=== PATIENT | male | born 1955 | race Caucasian/White ===

== ENCOUNTER 2017-09-23 11:27 | Day surgery (SDC) | payer BC ==
[2017-09-23] MEDS ORDERED: LIDOCAINE 2% MDV (20MG/ML) 20ML VIAL IV ONE (11:28)
[2017-09-23] MEDS ORDERED: PROPOFOL 10 MG/ML VIAL IV ONE (11:28)
[2017-09-23] MEDS ORDERED: MIDAZOLAM HCL 2MG/2ML VIAL IV ONE (11:28)
--- NOTE | 2017-09-24 13:10 | Operative Note ---
DATE OF SURGERY: 09/23/2017 OPERATION: COLONOSCOPY with cold forceps polypectomy x3. PREOPERATIVE DIAGNOSIS: Personal history of colon polyps. POSTOPERATIVE DIAGNOSIS: Three sigmoid colon polyps, status post cold forceps removal. PROCEDURE: After informed consent was obtained from the patient, he was placed in the left lateral decubitus position in the endoscopy suite, sedated and monitored by the department of anesthesia. Digital rectal exam was unremarkable. A well-lubricated [id number] colonoscope was inserted into the rectum and advanced to the cecum. Preparation quality was good. The cecum, ileocecal valve, appendiceal orifice, ascending colon, transverse colon, and descending colon were free of inflammatory changes, mass lesions, or polyps. In the sigmoid colon, there were 3 diminutive polyps each removed with a cold forceps. Minimal bleeding was noted at the sites. The remainder of the sigmoid colon and rectum were unremarkable. J-turn views of the anorectum were unremarkable. The endoscope was straightened, the rectal ampulla deflated, and the endoscope was removed. RECOMMENDATIONS: I would suggest the patient resume his medications and diet. He will require repeat surveillance exam in 3-5 years pending tissue histology. As always, thank you for allowing me to participate in the healthcare of your patients. CC: Dr. Aidan JARAMILLO
== END 2017-09-23 13:58 | disposition home or self-care (01) ==
LOC: HOP 11:27
PROVIDERS: ATTEND Internal Medicine Gastroenterology
DX: Z12.11 Encounter for screening for malignant neoplasm of colon (principal); Z86.010 Personal history of colon polyps; D12.5 Benign neoplasm of sigmoid colon; I10 Essential (primary) hypertension; E78.00 Pure hypercholesterolemia, unspecified

== ENCOUNTER 2017-11-02 16:21 | Observation (INO) | payer BC ==
[2017-11-02] MEDS ORDERED: SODIUM CHLORIDE 0.9% 500 ML IV ONE (17:15)
[2017-11-02] MEDS ORDERED: ONDANSETRON HCL IV 4 MG/2 ML VIAL IV ONE (17:15)
--- NOTE | 2017-11-02 17:19 | Emergency Department Record ---
History of Present Illness - General Chief Complaint: Abdominal Pain Stated Complaint: PAIN POST LIVER SURGERY Time Seen by Provider: 11/02/17 17:10 Source: Patient Mode of Arrival: Ambulatory Limitations: No limitations - History of Present Illness Initial Comments: The patient is here due to a hx of RUQ AP for about 5 hours today. The patient is 6 days S/P liver biopsy and cauterization at [facility] and had been doing very well until today. At about noon he began to feel weak and have RUQ sharp stabbing pain. He also felt chills, and was sweating and nauseated. Due to the recent surgery he came to the ER here at [facility] for further treatment. He denies any CP, SOB, ROLANDO, back pain, vomiting or diarrhea. MD Complaint: Abdominal pain Onset/Timin -: Days(s) Location: RUQ Radiation: None Severity: Moderate Consistency: Constant Improves With: Nothing Worsens With: Nothing Context: Recent surgery/procedure Associated Symptoms: Chills Treatments Prior to Arrival: Other - Related Data Allergies Allergy/AdvReac Type Severity Reaction Status Date / Time No Known Drug Allergies Allergy Verified 11/02/17 16:50 Travel Screening - Travel/Exposure Within Last 30 Days Have you traveled within the last 30 days?: No Review of Systems Constitutional: Reports: Chills, Fever, Malaise Eyes: Denies: Eye discharge ENT: Denies: Congestion Respiratory: Denies: Cough, Dyspnea Past Medical History - SOCIAL HISTORY Smoking Status: Former smoker Alcohol Use: None Drug Use: None - RESPIRATORY Hx Respiratory Disorders: Yes Hx Sleep Apnea: Yes Hx of CPAP: Yes - CARDIOVASCULAR Hx Cardio Disorders: Yes Hx Cardiac Cath: Yes Hx Hypertension: Yes Hx Coronary Stent: Yes Comment:: AAA, high cholesterol - NEURO Hx Neuro Disorders: No - GI Hx GI Disorders: Yes Hx of Polyps: Yes - Hx Genitourinary Disorders: Yes Hx Kidney Stones: Yes Hx Renal Disease: Yes - ENDOCRINE Hx Endocrine Disorders: No - MUSCULOSKELETAL Hx Musculoskeletal Disorders: Yes Hx Gout: Yes - PSYCH Hx Psych Problems: No - HEMATOLOGY/ONCOLOGY Hx Hematology/Oncology Disorders: Yes Hx Cancer: Yes (Left Kidney) Hx Chemotherapy: No Hx Radiation Therapy: No Family Medical History Any Significant Family History?: Yes Hx Diabetes: Brother/Sister Hx Heart Disease: Mother Physical Exam - General General Appearance: Alert, Oriented x3, Cooperative, No acute distress - Head Head exam: Atraumatic, Normocephalic, Normal inspection - Eye Eye exam: Normal appearance, PERRL - Neck Neck exam: Normal inspection, Full ROM. negative: Tenderness - Respiratory Respiratory exam: Normal lung sounds bilaterally. negative: Respiratory distress - Cardiovascular Cardiovascular Exam: Regular rate, Normal rhythm, Normal heart sounds - GI/Abdominal GI/Abdominal exam: Soft, Normal bowel sounds, Tenderness (There is mild RUQ tenderness to palpation.). negative: Distended, Rebound, Rigid - Extremities Extremities exam: Normal inspection, Full ROM, Normal capillary refill. negative: Tenderness - Neurological Neurological exam: Alert, Normal gait. negative: Abnormal gait, Motor sensory deficit Course Vital Signs 11/02/17 16:50 Temperature 97.7 F Pulse Rate 71 Respiratory 20 Rate Blood Pressure 146/86 Pulse Ox 97 - Reevaluation(s) Reevaluation #1: The patient is doing a lot better at this time. He is resting comfortably and the pain is much improved. I did discuss the lab work and CT results. Due to the fact the pain was quite severe earlier and the Lipase is elevated we will admit OBV. I did discuss the case with Ana ELENA) and she accepts the admission for Dr. Wall. 11/02/17 18:46 Medical Decision Making - Data Complexity MDM Data: Labs Ordered and/or Reviewed, X-Ray Ordered and/or Reviewed - Lab Data Result diagrams: 11/03/17 06:31 11/04/17 06:17 - EKG Data -: EKG Interpreted by Me EKG: No Acute Changes - Radiology Data Radiology results: Report reviewed (CT: No acute changes, liver lobe mass. Neg hematoma or blood.) Disposition Disposition: Admit Clinical Impression: Pancreatitis Qualifiers: Chronicity: acute Pancreatitis type: unspecified pancreatitis type Acute pancreatitis complication: unspecified Qualified Code(s): K85.90 - Acute pancreatitis without necrosis or infection, unspecified Disposition: Still a Patient at [facility] Decision to Admit: Admit from ER Decision to Admit Date: 11/02/17 Decision to Admit Time: 18:48 Accepting Physician: [facility]. Time Discussed w/Accepting Physician: 18:48 Condition: (2) Stable Time of Disposition: 18:48 Quality - Quality Measures Quality Measures: N/A - Blood Pressure Screening View Details: Yes Does Patient Have Any of the Following: No Blood Pressure Classification: Pre-Hypertensive BP Reading Systolic Measurement: 136 Diastolic Measurement: 89 Screening for High Blood Pressure: < Pre-Hypertensive BP, F/U Documented > [ [id number]] Pre-Hypertensive Follow-up Interventions: Referral to alternative/primary care provider.
[2017-11-02 17:32] LABS: HEMATOCRIT 41.1 % (42.0-52.0); HEMOGLOBIN 13.8 gm/dl (14.0-18.0); MEAN CORPUSCULAR HEMOGLOBIN 31.2 pg (27-33); MEAN CORPUSCULAR HGB CONC 33.6 g/dl (32-36); MEAN PLATELET VOLUME 10.1 fl (7.4-10.4); PLATELET COUNT 212 K/uL (130-400); RED BLOOD COUNT 4.42 M/uL (4.40-5.70); RED CELL DISTRIBUTION WIDTH 13.8 % (11.5-14.5); WHITE BLOOD COUNT W/O DIFF 12.7 K/uL (4.2-12.2)
[2017-11-02 17:44] LABS: PLATELET ESTIMATE NORMAL (NORMAL)
[2017-11-02 17:47] LABS: BLOOD UREA NITROGEN 22 mg/dL (8-23); CREATININE 1.1 mg/dL (0.7-1.2); EST GLOMERULAR FILTRATION RATE > 60 mL/min
[2017-11-02 17:48] LABS: TOTAL PROTEIN 7.5 g/dL (6.6-8.7)
[2017-11-02 17:50] LABS: GLUCOSE,RANDOM 134 mg/dL (74-109)
[2017-11-02 17:52] LABS: ALBUMIN 4.6 g/dL (4.0-5.0); ALKALINE PHOSPHATASE 84 U/L (40-129); ALT/SGPT 41 U/L (<41); AST/SGOT 46 U/L (10.0-50.0); BILIRUBIN,DIRECT 0.3 mg/dL (0-0.3)
[2017-11-02 17:53] LABS: C-REACTIVE PROTEIN 0.21 mg/dL (<0.5); LIPASE 112 U/L (13-60)
[2017-11-02 18:21] LABS: URINE APPEARANCE CLEAR; URINE BILIRUBIN NEGATIVE (NEGATIVE); URINE BLOOD NEGATIVE (NEGATIVE); URINE COLOR YELLOW; URINE GLUCOSE (UA) NEGATIVE (NEGATIVE); URINE KETONE NEGATIVE (NEGATIVE); URINE LEUKOCYTE ESTERASE NEGATIVE (NEGATIVE); URINE NITRITE NEGATIVE (NEGATIVE); URINE UROBILINOGEN 0.2 E.U./dL (0.20 - 1.00)
[2017-11-02] MEDS ORDERED: HYDROMORPHONE HCL 1 MG/ML SYRINGE IVP ONE (18:23)
[2017-11-02 19:20] LABS: CKMB 6.6 ng/mL (<6.73)
[2017-11-02 19:23] LABS: CREATINE PHOSPHOKINASE 252 U/L (39-308)
[2017-11-02] MEDS ORDERED: 0.9 % SODIUM CHLORIDE 1000ML 1,000 ML IV PRN (19:44)
[2017-11-02] MEDS ORDERED: ONDANSETRON HCL IV 4 MG/2 ML VIAL IVP PRN (19:44)
[2017-11-02] MEDS ORDERED: HYDROMORPHONE HCL 1 MG/ML SYRINGE IM PRN (19:44)
[2017-11-03 06:50] LABS: BASO % 0.1 % (0-6); EOS % 0.6 % (0-6); GRAN % 80.5 % (47-80); HEMATOCRIT 40.1 % (42.0-52.0); HEMOGLOBIN 13.3 gm/dl (14.0-18.0); LYMPH % 9.5 % (16-45); MEAN CORPUSCULAR HGB CONC 33.2 g/dl (32-36); MEAN PLATELET VOLUME 9.9 fl (7.4-10.4); MONO % 9.3 % (0-9); PLATELET COUNT 194 K/uL (130-400); RED BLOOD COUNT 4.31 M/uL (4.40-5.70); RED CELL DISTRIBUTION WIDTH 13.8 % (11.5-14.5)
[2017-11-03 06:54] LABS: MEAN CORPUSCULAR HEMOGLOBIN 30.8 pg (27-33)
[2017-11-03 07:06] LABS: ALB/GLOB RATIO 1.5 (1.1-1.8); ALBUMIN 4.1 g/dL (4.0-5.0); ALKALINE PHOSPHATASE 72 U/L (40-129); ALT/SGPT 32 U/L (<41); AST/SGOT 26 U/L (10.0-50.0); BLOOD UREA NITROGEN 17 mg/dL (8-23); EST GLOMERULAR FILTRATION RATE > 60 mL/min; GLUCOSE,RANDOM 136 mg/dL (74-109); TOTAL PROTEIN 6.9 g/dL (6.6-8.7)
--- NOTE | 2017-11-03 08:03 | CT SCAN REPORT ---
EXAM: EMERGENCY CT OF THE ABDOMEN AND PELVIS WITHOUT CONTRAST HISTORY: RIGHT UPPER QUADRANT PAIN, HAD LIVER BIOPSY SIX DAYS AGO AT [facility]. TECHNIQUE: Axial CT scan of the abdomen and pelvis was performed without oral or IV contrast. Comparison: CT of the abdomen and pelvis dated 02/02/16. FINDINGS: There again appears to be cholelithiasis, also noted previously. No additional findings to suggest acute cholecystitis currently. The previously seen right ureteral stent has been removed. There are some tiny residual calcifications in the right kidney, but no hydronephrosis or hydroureter on the right with no right ureteral calculus seen and no bladder calculus evident. Apparent metallic density in the left kidney as before consistent with postoperative/post procedure change. There is probably a tiny hyperdense cyst posteriorly along the upper pole of the left kidney only about 8 mm in size although more prominence than before. This is incompletely evaluated without IV contrast today. No hydronephrosis or hydroureter on the left with no left ureteral calculus seen and no bladder calculus evident. Evaluation of the bowel and viscera is very limited today without oral or IV contrast. Compared with the prior study, however, there does appear to be a new mass posteriorly in the right lobe of the liver superiorly measuring about 4.4 cm in AP x 3.6 cm in transverse diameter. Presumably this was the lesion recently biopsied elsewhere and correlation with the biopsy results suggested. No obvious additional mass elsewhere in the liver evident. No definite splenic, adrenal, or pancreatic mass identified. There is a small upper left lateral abdominal wall hernia containing some adipose tissue, but no bowel. This is located just anterior to the posterolateral aspect of the left eleventh rib and was present previously as well. No definite pancreatic mass identified. The previously seen aortobiiliac arterial graft is again evident. This is incompletely evaluated without IV contrast, but appears essentially unchanged. [place] aneurysm was previously measured at about 5.7 cm in transverse x 4.7 cm in AP diameter and at a comparable level today again measures 5.7 cm x 4.7 cm. Postop right LILY again seen creating artifact in the pelvis. Prominent stool throughout much of the colon raising the possibility of constipation. The appendix is visualized and appears negative. Some mild streaky atelectasis or infiltrate in the right lung base with some seen on the prior 02/02/16 CT as well. No free intraperitoneal air or free intraperitoneal fluid evident. Very small periumbilical anterior abdominal wall hernia containing adipose tissue, but no bowel. Prominent degenerative change in the lumbar spine. Partial fusion of the T11 and T12 vertebra as before. Prominent spurring in the lower thoracic spine as before. IMPRESSION: 1. THERE IS A NEW APPROXIMATELY 4.4 X 3.6 CM MASS POSTERIORLY IN THE RIGHT LOBE OF THE LIVER COMPARED WITH 02/02/16 WHICH BY HISTORY WAS PROBABLY RECENTLY BIOPSIED. NO OBVIOUS ASSOCIATED HEMATOMA IN OR AROUND THE LIVER EVIDENT. 2. CHOLELITHIASIS ALSO NOTED PREVIOUSLY. 3. 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 4. APPARENT POSTOP/POST PROCEDURE CHANGES LEFT KIDNEY BEFORE. THERE IS A NEW TINY, APPROXIMATELY 9 MM SLIGHTLY HYPERDENSE MASS ARISING FROM THE UPPER POLE OF THE LEFT KIDNEY POSTERIORLY WHICH MAY JUST BE A DENSE CYST ALTHOUGH IS INCOMPLETELY EVALUATED ON THIS NONCONTRAST CT. 5. SMALL PERIUMBILICAL ANTERIOR ABDOMINAL WALL HERNIA CONTAINING ADIPOSE TISSUE , BUT NO BOWEL. 6. SMALL LATERAL ABDOMINAL WALL HERNIA AT THE LEVEL OF THE ANTERIOR ASPECT OF THE LEFT ELEVENTH RIB POSTEROLATERALLY. 7. MULTILEVEL DEGENERATIVE CHANGE IN THE SPINE. 8. POSTOP RIGHT LILY. JOB NUMBER: [id number] [facility]
[2017-11-03] MEDS ORDERED: HYDROMORPHONE HCL 2 MG/ML VIAL IV PRN (08:16)
[2017-11-03] MEDS: HYDROCHLOROTHIAZIDE 12.5 MG CAPSULE PO SCH (09:51)
[2017-11-03] MEDS: AMLODIPINE BESYLATE 5MG TAB PO SCH (09:51)
[2017-11-03] MEDS: ATORVASTATIN 20 MG TABLET PO SCH (09:52)
[2017-11-03] MEDS: VALSARTAN 80 MG TAB PO SCH (09:52)
[2017-11-03] MEDS: PANTOPRAZOLE SODIUM IV 40 MG VIAL IV SCH (09:52)
[2017-11-03] MEDS ORDERED: FENOFIBRATE NANOCRYSTALLIZED 145 MG PO SCH (10:00)
[2017-11-03] MEDS ORDERED: COLCHICINE PO SCH (10:00)
[2017-11-03] MEDS ORDERED: PROBENECID PO SCH (10:00)
--- NOTE | 2017-11-03 11:57 | History & Physical ---
History of Present Illness - Date of Service Date of Service for History & Physical: 11/03/17 - History of Present Illness Admitting Diagnosis: 1. Acute Pancreatitis History of Present Illness: 62 yo male admitted for abdominal pain. Patient presented to our ED after 5 days of worsening RUQ abd pain. Upon presentation, VSS. wbc 12.7, normal cmp. lipase 112. CTA: new approx 4.4 x 3.6 cm mass posteriorly in the right lobe of the liver. no assoc hematoma in or around the liver is evident. cholelithiasis , aortobiliac graft/stent unchanged, postop procedure left kidney. new 9 mm slightly hyperdense mass arising from the upper pole of the left kidney which may be a cyst. Patient was started on IVFs and pain medication. admitted for further medical management. 11/03- patient lying in bed comfortably. states RUQ pain is better controlled with 1 mg of IV Dilaudid Q4H prn. Tolerating clear liquids. Passing gas though no stool since admission. Denies fever, chills, n/v, cough, diaphoresis , skin bruising, dysuria, or edema. non smoker. States he quit drinking etoh 40+ years ago. denies h/o pancreatitis. h/o renal carcinoma s/p resection. New liver lesion s/p ablation at [facility] last wednesday. H/o elevated TG- on fenofibrate. no new changes to medications. PCP: Dr. Washington Travel Screening - Travel/Exposure Within Last 30 Days Have you traveled within the last 30 days?: No - Travel/Exposure Within Last Year Have you traveled outside the [place] in the last year?: No - Additonal Travel Details Have you been exposed to anyone with a communicable illness?: No - Travel Symptoms Symptom Screening: None Review of Systems Constitutional: Denies: Chills, Fever, Malaise, Night sweats, Weakness Eyes: Denies: Eye discharge ENT: Denies: Congestion Respiratory: Denies: Cough, Dyspnea Cardiovascular: Denies: Chest pain Gastrointestinal: Reports: Abdominal pain (RUQ with palpation, no R/G). Denies : Constipation, Diarrhea, Hematochezia, Melena, Nausea, Vomiting Genitourinary: Denies: Dysuria, Frequency, Hematuria Musculoskeletal: Denies: Back pain Skin: Denies: Bruising, Change in color Neurological: Denies: Abnormal gait, Headache Past Medical History - SOCIAL HISTORY Smoking Status: Former smoker Alcohol Use: None Drug Use: None - RESPIRATORY Hx Respiratory Disorders: Yes Hx Sleep Apnea: Yes Hx of CPAP: Yes - CARDIOVASCULAR Hx Cardio Disorders: Yes Hx Cardiac Cath: Yes Hx Hypertension: Yes Hx Coronary Stent: Yes Comment:: AAA, high cholesterol - NEURO Hx Neuro Disorders: No - GI Hx GI Disorders: Yes Hx of Polyps: Yes - Hx Genitourinary Disorders: Yes Hx Kidney Stones: Yes Hx Renal Disease: Yes - ENDOCRINE Hx Endocrine Disorders: No - MUSCULOSKELETAL Hx Musculoskeletal Disorders: Yes Hx Gout: Yes - PSYCH Hx Psych Problems: No - HEMATOLOGY/ONCOLOGY Hx Hematology/Oncology Disorders: Yes Hx Cancer: Yes (Left Kidney) Hx Chemotherapy: No Hx Radiation Therapy: No Family Medical History Any Significant Family History?: Yes Hx Diabetes: Brother/Sister Hx Heart Disease: Mother H&P Meds/Allergies - Allergies Allergies: Allergies Allergy/AdvReac Type Severity Reaction Status Date / Time No Known Drug Allergies Allergy Verified 11/02/17 16:50 - Active Medications Active Medications: Current Medications Acetaminophen (Tylenol 500mg Tab) 500 mg PO Q6H PRN PRN Reason: PAIN/TEMP Amlodipine Besylate (Norvasc) 5 mg PO DAILY [facility] Last Admin: 11/03/17 09:51 Dose: 5 mg Atorvastatin Calcium (Lipitor) 80 mg PO DAILY [facility] Last Admin: 11/03/17 09:52 Dose: 80 mg Hydrochlorothiazide (Hctz 12.5mg) 12.5 mg PO DAILY [facility] Last Admin: 11/03/17 09:51 Dose: 12.5 mg Hydromorphone HCl (Dilaudid) 1 mg IV Q4H PRN PRN Reason: Abdominal Pain Sodium Chloride () 1,000 mls @ 100 mls/hr IV .Q10H PRN PRN Reason: LARGE VOLUME IV Non-Formulary Medication (Fenofibrate Nanocrystallized [Fenofibrate]) 145 mg PO DAILY [facility] Non-Formulary Medication (Probenecid/Colchicine [Probenecid-Colchicine Tabs]) 1 tab PO DAILY [facility] Ondansetron HCl (Zofran) 4 mg IVP Q4H PRN PRN Reason: NAUSEA Pantoprazole Sodium (Protonix Iv) 40 mg IV DAILY [facility] Last Admin: 11/03/17 09:52 Dose: 40 mg Valsartan (Diovan) 160 mg PO DAILY [facility] Last Admin: 11/03/17 09:52 Dose: 160 mg Physical Exam - Vital Signs Vital Signs: Vital Signs - Last 24 Hrs Temp Pulse Resp BP BP Pulse Ox 11/03/17 09:58 17 11/03/17 09:00 98.1 F 70 18 132/78 98 11/03/17 04:20 98.2 F 73 18 127/80 95 11/03/17 00:46 98.0 F 74 18 126/81 95 11/02/17 21:00 16 11/02/17 19:44 98.2 F 73 20 145/85 96 - General General Appearance: Alert, Oriented x3, Cooperative, No acute distress Limitations: No limitations - Head Head exam: Atraumatic, Normocephalic, Normal inspection - Eye Eye exam: Normal appearance, PERRL - Neck Neck exam: Normal inspection, Full ROM. negative: Tenderness - Respiratory Respiratory exam: Normal lung sounds bilaterally. negative: Respiratory distress - Cardiovascular Cardiovascular Exam: Regular rate, Normal rhythm, Normal heart sounds - GI/Abdominal GI/Abdominal exam: Soft, Normal bowel sounds, Tenderness (There is mild RUQ tenderness to palpation.). negative: Distended, Rebound, Rigid - Extremities Extremities exam: Normal inspection, Full ROM, Normal capillary refill. negative: Tenderness - Neurological Neurological exam: Alert, Normal gait. negative: Abnormal gait, Motor sensory deficit - Skin Skin exam: Normal color. negative: Cyanosis, Petechiae, Rash Results - Labs Result Diagrams: 11/03/17 06:31 11/03/17 06:31 Labs Last 24 Hours: Laboratory Results - last 24 hr 11/03/17 11/03/17 11/03/17 06:31 06:31 06:31 WBC 9.0 RBC 4.31 L Hgb 13.3 L Hct 40.1 L MCV 93.0 MCH 30.8 MCHC 33.2 RDW 13.8 Plt Count 194 MPV 9.9 Gran % 80.5 H Lymphocytes % 9.5 L Monocytes % 9.3 H Eosinophils % 0.6 Basophils % 0.1 Sodium 141 Potassium 3.9 Chloride 106 Carbon Dioxide 24.0 Anion Gap 11.0 BUN 17 Creatinine 1.0 Estimated GFR > 60 Random Glucose 136 H Calcium 8.9 Total Bilirubin 0.80 AST 26 ALT 32 Alkaline Phosphatase 72 Total Protein 6.9 Albumin 4.1 Globulin 2.8 Albumin/Globulin Ratio 1.5 Lipase 394 H VTE H&P Assessment - Risk for VTE Risk for VTE: Yes Risk Level: Moderate Risk Assessment Date: 11/03/17 Risk Assessment Time: 11:00 VTE Orders Placed or Will Be Placed: No VTE Reason for No Prophylaxis: Not Indicated (patient ambulating the room) Plan - Detailed Diagnosis and Plan (1) Abdominal pain Current Visit: Yes Status: Acute Base Code: R10.9 - UNSPECIFIED ABDOMINAL PAIN Comment: 11/03 - pancreatitis vs. biliary colic vs. inflammation from ablation vs other? - CTA: new approx 4.4 x 3.6 cm mass posteriorly in the right lobe of the liver. no assoc hematoma in or around the liver is evident. cholelithiasis, aortobiliac graft/stent unchanged, postop procedure left kidney. new 9 mm slightly hyperdense mass arising from the upper pole of the left kidney which may be a cyst. - lipase 112-394, bili normal, normal wbc, afebrile - CLD as tolerated - 1 mg of Dilaudid Q4H PRN, will attemp to transition to PO pain control later today - will d/c NS and start LR at rate of 150. monitor for any signs of fluid overload. - monitor for any worsening symptoms. make patient NPO if pain worsens. (2) DVT prophylaxis Current Visit: Yes Status: Acute Base Code: [id number] - Comment: 11/03 - continue ambulation as tolerated (3) Full code status Current Visit: Yes Status: Acute Base Code: Z78.9 - OTHER SPECIFIED HEALTH STATUS Comment: 11/03 - FULL CODE
[2017-11-03] MEDS ORDERED: RINGERS SOLUTION,LACTATED 1,000 ML IV PRN ×2 (12:17→19:38)
[2017-11-03] MEDS: ACETAMINOPHEN 500 MG TABLET PO PRN (18:17)
[2017-11-04] MEDS: ACETAMINOPHEN 500 MG TABLET PO PRN ×2 (06:24→12:37)
[2017-11-04 07:00] LABS: ALB/GLOB RATIO 1.4 (1.1-1.8); ALBUMIN 3.9 g/dL (4.0-5.0); ALKALINE PHOSPHATASE 65 U/L (40-129); ALT/SGPT 23 U/L (<41); AMYLASE 70 U/L (28-100); AST/SGOT 18 U/L (10.0-50.0); BLOOD UREA NITROGEN 14 mg/dL (8-23); EST GLOMERULAR FILTRATION RATE > 60 mL/min; GLUCOSE,RANDOM 120 mg/dL (74-109); LIPASE 54 U/L (13-60); TOTAL PROTEIN 6.7 g/dL (6.6-8.7); TRIGLYCERIDES 224 mg/dL (<150)
--- NOTE | 2017-11-04 10:10 | Discharge Summary ---
Providers Discharge Summary Date: 11/04/17 Date of admission: 11/02/17 19:30 Attending physician: SKYLAR AVELAR Primary care physician: LORE FABIAN D.O. Physical Exam - Vital Signs Vital Signs: Vital Signs - Last 24 Hrs Temp Pulse Resp BP BP Pulse Ox 11/04/17 08:00 97.9 F 65 16 136/87 95 11/04/17 04:00 69 18 143/81 97 11/04/17 00:00 66 18 143/82 95 11/03/17 21:00 18 11/03/17 20:00 97.8 F 70 18 130/74 95 11/03/17 17:00 99.3 F 68 18 141/85 96 11/03/17 13:00 98.6 F 70 18 138/80 97 - General General Appearance: Alert, Oriented x3, Cooperative, No acute distress Limitations: No limitations - Head Head exam: Atraumatic, Normocephalic, Normal inspection - Eye Eye exam: Normal appearance, PERRL - Neck Neck exam: Normal inspection, Full ROM. negative: Tenderness - Respiratory Respiratory exam: Normal lung sounds bilaterally. negative: Respiratory distress - Cardiovascular Cardiovascular Exam: Regular rate, Normal rhythm, Normal heart sounds Peripheral Pulses: 3+: Radial (R), Radial (L), Dorsalis Pedis (R), Dorsalis Pedis (L) - GI/Abdominal GI/Abdominal exam: Soft, Normal bowel sounds. negative: Distended, Rebound, Rigid - Extremities Extremities exam: Normal inspection, Full ROM, Normal capillary refill. negative: Tenderness - Neurological Neurological exam: Alert, Normal gait. negative: Abnormal gait, Motor sensory deficit - Skin Skin exam: Normal color. negative: Cyanosis, Petechiae, Rash Hospitalization - Hospitalization Admission Diagnosis: 1. Acute Pancreatitis - Problem List/Discharge Diagnosis (1) Abdominal pain Current Visit: Yes Status: Acute Base Code: R10.9 - UNSPECIFIED ABDOMINAL PAIN Comment: - pancreatitis vs. biliary colic vs. inflammation from ablation vs other? - CTA: new approx 4.4 x 3.6 cm mass posteriorly in the right lobe of the liver. no assoc hematoma in or around the liver is evident. cholelithiasis, aortobiliac graft/stent unchanged, postop procedure left kidney. new 9 mm slightly hyperdense mass arising from the upper pole of the left kidney which may be a cyst. - lipase 112-394, bili normal, normal wbc, afebrile - diet advancedand patient tolerated well. (2) DVT prophylaxis Current Visit: Yes Status: Acute Base Code: [id number] - Comment: 11/04/17 - continue ambulation as tolerated (3) Full code status Current Visit: Yes Status: Acute Base Code: Z78.9 - OTHER SPECIFIED HEALTH STATUS Comment: - FULL CODE - Hospitalization Course Disposition: Home, Self-Care Hospital Course: 62 yo male admitted for abdominal pain. Patient presented to our ED after 5 days of worsening RUQ abd pain. Upon presentation, VSS. wbc 12.7, normal cmp. lipase 112. CTA: new approximately 4.4 x 3.6 cm mass posteriorly in the right lobe of the liver. No assoc hematoma in or around the liver is evident. cholelithiasis, aortobiliac graft/stent unchanged, postop procedure left kidney. new 9mm slightly hyperdense mass arising from the upper pole of the left kidney which may be a cyst. Patient was started on IVFs and pain medication. admitted for further medical management. 11/03- patient lying in bed comfortably. states RUQ pain is better controlled with 1 mg of IV Dilaudid Q4H prn. Tolerating clear liquids. Passing gas though no stool since admission. Denies fever, chills, n/v, cough, diaphoresis , skin bruising, dysuria, or edema. non smoker. States he quit drinking etoh 40+ years ago. denies h/o pancreatitis. h/o renal carcinoma s/p resection. New liver lesion s/p ablation at [facility] last Wednesday. H/o elevated TG- on fenofibrate. no new changes to medications. 11/04/17 - The patient's diet was advanced last night and he was able to tolerate well without pain or discomfort. He has not required any pain medications overnight. This morning his diet was further advanced and he did well. He is to be discharged home in stable condition and is to follow up with his PCP within 5 -7 days. I discussed with the patient and his the plan for today and they are both comfortable with this plan of care. Abnormal Labs: Abnormal Lab Results 11/03/17 11/03/17 11/03/17 Range/Units 06:31 06:31 06:31 RBC 4.31 L (4.40-5.70) M/uL Hgb 13.3 L (14.0-18.0) gm/dl Hct 40.1 L (42.0-52.0) % Gran % 80.5 H (47-80) % Lymphocytes % 9.5 L (16-45) % Monocytes % 9.3 H (0-9) % Random Glucose 136 H (74-109) mg/dL Albumin (4.0-5.0) g/dL Triglycerides (<150) mg/dL Lipase 394 H (13-60) U/L 11/04/17 Range/Units 06:17 RBC (4.40-5.70) M/uL Hgb (14.0-18.0) gm/dl Hct (42.0-52.0) % Gran % (47-80) % Lymphocytes % (16-45) % Monocytes % (0-9) % Random Glucose 120 H (74-109) mg/dL Albumin 3.9 L (4.0-5.0) g/dL Triglycerides 224 H (<150) mg/dL Lipase (13-60) U/L Condition at Discharge: (2) Stable Discharge Medications - Discharge Medications Prescriptions: Acetaminophen [Tylenol 500Mg Tab] 500 mg PO Q6H PRN 7 Days #28 tablet PRN Reason: Pain/Temp Home Medications: Ambulatory Orders Fenofibrate Nanocrystallized [Fenofibrate] 145 mg PO DAILY 01/16/16 [Last Taken 11/02/17] Olmesartan/Amlodipin/Hcthiazid [Tribenzor 20-5-12.5 mg Tablet] 1 each PO DAILY 01/16/16 [Last Taken 11/02/17] Probenecid/Colchicine [Probenecid-Colchicine Tabs] 1 tab PO DAILY 01/16/16 [ Last Taken 11/02/17] Rosuvastatin Calcium [Crestor] 40 mg PO DAILY 01/16/16 [Last Taken 11/02/17] Acetaminophen [Tylenol 500Mg Tab] 500 mg PO Q6H PRN 7 Days #28 tablet 11/04/17 [ Last Taken Unknown] Discharge Plan - Discharge Instructions Activity at Discharge: Increase Activity as Tolerated Diet at Discharge: Advance to Usual Diet, Low Salt Diet Instructions: Acute Abdominal Pain (DC) Additional Instructions: - Advance diet as tolerated. - Acetaminophen PRN for pain - Follow up with PCP within 7-10 - Return to Ed if symptoms return. Quality Measures - Quality Measures Quality Measures: Documentation of Current Medications in Medical Record, Screening for High Blood Pressure and F/U Documented - Current Medications Quality Measure: Measure #130: Documentation of Current Medications Documentation of Current Medications: <Current Medications Documented/Reviewed> [G8427] - Blood Pressure Screening Quality Measure: Screening for High Blood Pressure and Follow-Up Documented Does Patient Have Any of the Following: Active Dx of HTN Blood Pressure Classification: Pre-Hypertensive BP Reading Systolic Measurement: 136 Diastolic Measurement: 89 Screening for High Blood Pressure: Patient Exclusion, Hx of HTN [G9744] - Elder Abuse Suspicion Index EASI Reference Information: Salvador KNUTSON, Jess C, Merrill D, Clayton Simpson.Development and validation of a tool to assist physicians identification of elder abuse: The Elder Abuse Suspicion Index (EASI ). Journal of Elder Abuse and Neglect, 2008; 20 (3): 276-300.
[2017-11-04] MEDS: ATORVASTATIN 20 MG TABLET PO SCH (10:46)
[2017-11-04] MEDS: VALSARTAN 80 MG TAB PO SCH (10:46)
[2017-11-04] MEDS: HYDROCHLOROTHIAZIDE 12.5 MG CAPSULE PO SCH (10:46)
[2017-11-04] MEDS: AMLODIPINE BESYLATE 5MG TAB PO SCH (10:48)
[2017-11-04] MEDS: PANTOPRAZOLE SODIUM IV 40 MG VIAL IV SCH (10:49)
[2017-11-04] MEDS ORDERED: HYDROCODONE/APAP 5/325MG TABLET PO ONE (15:03)
== END 2017-11-04 15:30 | disposition home or self-care (01) ==
LOC: ER 16:21 → MEDSURG 19:30
PROVIDERS: ADMIT Internal Medicine; ATTEND Internal Medicine
DX: K85.90 Acute pancreatitis without necrosis or infection, unspecified (principal); Z85.528 Personal history of other malignant neoplasm of kidney; N28.89 Other specified disorders of kidney and ureter; I10 Essential (primary) hypertension; E78.00 Pure hypercholesterolemia, unspecified; R16.0 Hepatomegaly, not elsewhere classified; I71.4 Abdominal aortic aneurysm, without rupture; I25.10 Atherosclerotic heart disease of native coronary artery without angina pectoris; F17.210 Nicotine dependence, cigarettes, uncomplicated; M10.9 Gout, unspecified; G47.30 Sleep apnea, unspecified
CPT/HCPCS: 99285 ×2; 96374; 96375; 82550; 82150; 83690 ×3; 85025; 80076; 86140; 82553; 84478; 80048; 80053 ×2; 81003; 84484; 85027; 74176; 93005; 93010; G0378 ×3; J2405; J1170 ×2; 99217; 99220; C9113; J7120

== ENCOUNTER 2017-11-07 21:59 | Emergency (ER) | payer BC ==
--- NOTE | 2017-11-07 22:17 | Emergency Department Record ---
History of Present Illness - General Stated Complaint: LOWER BACK/FLANK PAIN Time Seen by Provider: 11/07/17 22:09 Source: Patient Mode of Arrival: Ambulatory Limitations: No limitations - History of Present Illness Initial Comments: 62 yo male presents with flank pain that started on his left the last two days. The pain wraps around the left side. No fevers or chills. No nausea, vomiting or diarrhea. No hematuria. No diarrhea. No blood in the stool. He feels a "lump" in his left lower back. Two weeks ago he had an ablation of a liver mass at [facility]. he reports right sided pain since then. He was recently seen at [facility] for pancreatitis. Those symptoms have improved. No rash. No bruising. No skin changes or redness. He has not followup with his doctor since the admission for pancreatitis. He has a history of gallstones, prior renal stones, liver mass [facility] prior right sided ureteral stent, pyelonephritis, renal insufficiency. MD Complaint: Back pain -: Days(s) (2) Place: Home Radiation: Abdomen (left sided) Severity: Moderate Quality: Aching Consistency: Constant Improves With: None Worsens With: None Context: Unknown Associated Symptoms: Denies other symptoms - Related Data Previous Rx's Medication Instructions Recorded Acetaminophen [Tylenol 500Mg Tab] 500 mg PO Q6H PRN 7 Days #28 tablet 11/04/17 Hydrocodone/Acetaminophen [[place] 1 each PO Q6H #18 tablet 11/08/17 5-325 Tablet] Allergies Allergy/AdvReac Type Severity Reaction Status Date / Time No Known Drug Allergies Allergy Verified 11/02/17 16:50 Review of Systems Constitutional: Denies: Chills, Fever, Malaise, Weakness Eyes: Denies: Eye discharge ENT: Denies: Congestion, Throat pain Respiratory: Denies: Cough, Dyspnea, Hemoptysis, Stridor, Wheezes Cardiovascular: Denies: Chest pain, Syncope Endocrine: Denies: Fatigue Gastrointestinal: Reports: As per HPI, Abdominal pain. Denies: Diarrhea, Nausea , Vomiting Genitourinary: Denies: Dysuria, Frequency, Hematuria, Testicular pain Musculoskeletal: Reports: Back pain, Myalgia. Denies: Arthralgia, Joint swelling Skin: Denies: Bruising, Change in color, Rash Neurological: Denies: Headache, Numbness, Weakness Psychiatric: Denies: Anxiety Hematological/Lymphatic: Denies: Blood Clots, Easy bleeding, Easy bruising, Swollen glands Past Medical History - SOCIAL HISTORY Smoking Status: Former smoker Drug Use: None - RESPIRATORY Hx Respiratory Disorders: Yes Hx Sleep Apnea: Yes Hx of CPAP: Yes - CARDIOVASCULAR Hx Cardio Disorders: Yes Hx Cardiac Cath: Yes Hx Hypertension: Yes Hx Coronary Stent: Yes Comment:: AAA, high cholesterol - NEURO Hx Neuro Disorders: No - GI Hx GI Disorders: Yes Hx of Polyps: Yes - Hx Genitourinary Disorders: Yes Hx Kidney Stones: Yes Hx Renal Disease: Yes - ENDOCRINE Hx Endocrine Disorders: No - MUSCULOSKELETAL Hx Musculoskeletal Disorders: Yes Hx Gout: Yes - PSYCH Hx Psych Problems: No - HEMATOLOGY/ONCOLOGY Hx Hematology/Oncology Disorders: Yes Hx Cancer: Yes (Left Kidney) Hx Chemotherapy: No Hx Radiation Therapy: No Family Medical History Hx Diabetes: Brother/Sister Hx Heart Disease: Mother Physical Exam - General General Appearance: Alert, Oriented x3, Cooperative, No acute distress Limitations: No limitations - Head Head exam: Normal inspection - Eye Eye exam: Normal appearance, PERRL. negative: Conjunctival injection, Scleral icterus - ENT ENT exam: Normal exam, Mucous membranes moist Ear exam: Normal external inspection Nasal Exam: Normal inspection Mouth exam: Normal external inspection - Neck Neck exam: Normal inspection, Full ROM. negative: Tenderness - Respiratory Respiratory exam: Normal lung sounds bilaterally. negative: Respiratory distress - Cardiovascular Cardiovascular Exam: Regular rate, Normal rhythm, Normal heart sounds - GI/Abdominal GI/Abdominal exam: Soft. negative: Distended, Guarding, Rebound, Rigid, Tenderness - Rectal Rectal exam: Deferred - exam: Deferred - Extremities Extremities exam: Normal inspection, Full ROM, Normal capillary refill. negative: Pedal edema, Tenderness - Back Back exam: Reports: Normal inspection, CVA tenderness (L), Full ROM, Paraspinal tenderness, Tenderness. Denies: Muscle spasm, Rash noted - Neurological Neurological exam: Alert, Normal gait, Oriented X3 - Psychiatric Psychiatric exam: Normal affect, Normal mood - Skin Skin exam: Dry, Intact, Normal color, Warm Course Vital Signs 11/07/17 22:06 Temperature 97.6 F Pulse Rate [ 76 Pulse Ox Probe] Respiratory 24 Rate Blood Pressure 146/84 [Right Arm] Pulse Ox 98 - Reevaluation(s) Reevaluation #1: 11/07/17 22:21 Recent H and P and the DC summary were reviewed 11/07/17 22:24 CT reviewed from the admission. 11/07/17 22:56 The labs were reviewed Lipase is 69 Hgb is 11.9 03 22:56 03 22:57 On recheck the pain is improved with better control. Given his very extensive history CT scan ordered UA pending. 11/07/17 23:19 The UA is negative for acute infection. 11/07/17 23:40 On recheck the patient is doing much better with controlled pain. CT report from [facility] is pending. 11/08/17 00:[address] scan was reviewed. No acute findings or changes from his recent CT scan. No signs of acute process on the labs or examination. He will be treated symptomatically and followup with his PCP. Medical Decision Making - Lab Data Result diagrams: 11/07/17 22:18 03 22:18 Disposition Disposition: Discharge Clinical Impression: Back pain Disposition: Home, Self-Care Condition: (1) Good Instructions: Flank Pain (ED) Additional Instructions: Follow up with your doctor as scheduled. Return if you have any new concerns, fever, vomiting, blood in stools or urine or any new concerns Prescriptions: Hydrocodone/Acetaminophen [[place] 5-325 Tablet] 1 each PO Q6H #18 tablet Time of Disposition: 00:18 Quality - Quality Measures Quality Measures: N/A - Blood Pressure Screening Does Patient Have Any of the Following: No Blood Pressure Classification: Pre-Hypertensive BP Reading Systolic Measurement: 134 Diastolic Measurement: 83 Screening for High Blood Pressure: < Pre-Hypertensive BP, F/U Documented > [ G8950] Pre-Hypertensive Follow-up Interventions: Referral to alternative/primary care provider.
[2017-11-07] MEDS ORDERED: ONDANSETRON HCL IV 4 MG/2 ML VIAL IVP ONE (22:21)
[2017-11-07] MEDS ORDERED: 0.9 % SODIUM CHLORIDE 1,000 ML BAG IV ONE (22:21)
[2017-11-07] MEDS ORDERED: HYDROMORPHONE HCL 2 MG/ML VIAL IVP ONE (22:21)
[2017-11-07 22:33] LABS: BASO % 0.1 % (0-6); EOS % 2.2 % (0-6); GRAN % 70.2 % (47-80); HEMATOCRIT 36.3 % (42.0-52.0); HEMOGLOBIN 11.9 gm/dl (14.0-18.0); LYMPH % 17.7 % (16-45); MEAN CELL VOLUME 92.6 fl (81-97); MEAN CORPUSCULAR HGB CONC 32.8 g/dl (32-36); MEAN PLATELET VOLUME 9.4 fl (7.4-10.4); MONO % 9.8 % (0-9); PLATELET COUNT 215 K/uL (130-400); RED BLOOD COUNT 3.92 M/uL (4.40-5.70); RED CELL DISTRIBUTION WIDTH 13.6 % (11.5-14.5); WHITE BLOOD COUNT W/O DIFF 6.8 K/uL (4.2-12.2)
[2017-11-07 22:35] LABS: MEAN CORPUSCULAR HEMOGLOBIN 30.3 pg (27-33)
[2017-11-07 22:42] LABS: BLOOD UREA NITROGEN 29 mg/dL (8-23); EST GLOMERULAR FILTRATION RATE > 60 mL/min
[2017-11-07 22:43] LABS: TOTAL PROTEIN 6.6 g/dL (6.6-8.7)
[2017-11-07 22:44] LABS: GLUCOSE,RANDOM 136 mg/dL (74-109)
[2017-11-07 22:47] LABS: ALB/GLOB RATIO 1.8 (1.1-1.8); ALBUMIN 4.2 g/dL (4.0-5.0); ALKALINE PHOSPHATASE 93 U/L (40-129); ALT/SGPT 49 U/L (<41); AST/SGOT 39 U/L (10.0-50.0); LIPASE 69 U/L (13-60)
[2017-11-07 23:05] LABS: URINE APPEARANCE CLEAR; URINE BILIRUBIN NEGATIVE (NEGATIVE); URINE BLOOD NEGATIVE (NEGATIVE); URINE COLOR YELLOW; URINE GLUCOSE (UA) NEGATIVE (NEGATIVE); URINE KETONE NEGATIVE (NEGATIVE); URINE LEUKOCYTE ESTERASE NEGATIVE (NEGATIVE); URINE NITRITE NEGATIVE (NEGATIVE); URINE UROBILINOGEN 0.2 E.U./dL (0.20 - 1.00)
[2017-11-08] MEDS ORDERED: HYDROCODONE/APAP 5/325MG TABLET PO ONE (00:18)
--- NOTE | 2017-11-09 08:05 | CT SCAN REPORT ---
EXAM: CT OF THE ABDOMEN AND PELVIS WITHOUT CONTRAST HISTORY: LEFT FLANK PAIN. TECHNIQUE: CT of the abdomen and pelvis was performed without oral or IV contrast. This limits evaluation of bowel and solid visceral organs. Comparison: Prior CT from 11/02/17. FINDINGS: Limited evaluation of the lung bases is unremarkable. There is elevation of the right hemidiaphragm, as before. Little change in the approximately 4.3 x 3.5 cm heterogeneous mass near the dome of the liver. The spleen is enlarged measuring 16 cm. A prominent and somewhat nodular appearance to the adrenal glands bilaterally, unchanged. The gallbladder is present. Multiple gallstones are suggested. The visualized pancreas is grossly unremarkable. Aortobiiliac endovascular stent graft with stable infrarenal abdominal aortic aneurysm measuring 5.3 x 5.9 cm. The patient is status post peripheral left nephrectomy with associated post surgical changes. The kidneys are otherwise grossly unremarkable. There is a large amount of stool in the colon. There is a right hip prosthesis, limiting evaluation of the pelvis. Enlargement of the prostate. Correlate with PSA levels. The urinary bladder is not distended, limiting its evaluation. Normal appendix. IMPRESSION: 1. NEGATIVE FOR AN ACUTE INTRAABDOMINAL/PELVIC PROCESS. STABLE POST SURGICAL CHANGE. 2. CHOLELITHIASIS. GROSSLY STABLE POORLY DEFINED MASS WITHIN THE LIVER. 3. SPLENOMEGALY AT 16 CM. 4. STABLE PROMINENT APPEARANCE TO THE ADRENAL GLANDS BILATERALLY. 5. ENLARGEMENT OF THE PROSTATE. CORRELATE WITH PSA LEVELS. JOB NUMBER: [id number] MTDD
== END 2017-11-08 00:28 | disposition home or self-care (01) ==
LOC: ER 21:59
DX: M54.5 Low back pain (principal); R10.32 Left lower quadrant pain; I10 Essential (primary) hypertension; Z87.891 Personal history of nicotine dependence
CPT/HCPCS: 99284 ×2; 96374; 96375; 83690; 85025; 80053; 81003; 74176; J2405; J1170; J7030